=== PATIENT | male | born 1945 ===

== ENCOUNTER → 2023-11-18 01:10 | Outpatient (CLI) | payer MEDICARE, BC, SELFPAY ==
--- NOTE | 2023-11-18 07:45 | DI.US_ITS ---
Exam(s) US SOFT TISSUE HEAD OR NECK EXAM: US SOFT TISSUE HEAD OR NECK CLINICAL HISTORY: right cheek with palpable mass x 2 months,buccal mas,r22.0. TECHNIQUE: Ultrasound was performed using standard protocol. COMPARISON: No exams were available for comparison FINDINGS: Sonographic assessment utilizing grayscale and color Doppler imaging was performed and targeted to th e area of clinical concern. In the right cheek, there is a 4.4 x 1.2 x 1.9 cm mass seen sonographically. The mass has both cysti c and solid components. The cabrera appear thickened. There is mild increased vascularity surrounding the lesion. There are enlarged lymph nodes seen in the right neck. The largest measures 2.7 x 0.4 x 0.9 cm. Sonographically they have a benign appearance with a hyperechoic notch present. IMPRESSION: Thick-walled cyst complex cystic and solid 4.4 x 1.2 x 1.9 cm mass in the right cheek corresponding t o the palpable abnormality. Mild surrounding inflammation is seen. There also mildly enlarged lymph nodes which may be reactive. CT scan of the neck with contrast should be considered for for better characterization of the lesion. Abscess should be considered. However soft tissue mass/neoplastic p rocess cannot be entirely excluded. Unexpected findings DATA REPOSITORY:
== END ==
PROVIDERS: Visit Provider Registered Nurse Maternal Newborn
DX: R22.0 Localized swelling, mass and lump, head (principal)
CPT/HCPCS: 76536